=== PATIENT | male | born 1960 | race Caucasian/White ===

== ENCOUNTER 2020-10-28 14:27 | Emergency (ER) | payer OTHER ==
[~2020-10-28] VITALS: Ht 177.8 cm; Wt 84.1 kg
[~2020-10-28 14:27] MED LIST: APAP/HYDROCO1 TA1 PO; ASPIRIN ADULT L81 MG PO; CEPHALEXIN500 M1 PO; ERYTHROMYCIN BAS1 GM OD; FINASTERIDE5 MG PO; GABAPENTIN300 MG PO; ISOSORBIDE DINIT5 MG OR; LISINOPRIL10 MG PO; LORATADINE10 M1 PO; METOPROL TAR25 MG; METOPROL TAR25 MG PO; MULTI VIT PO; NORCO1 TAB OR; NORCO1 TAB PO; PRILOSEC20 MG/CAP PO; PRILOSEC40 MG PO; ROBITUSSIN AC10 ML OR; SIMVASTATIN10 MG PO; SIMVASTATIN40 MG PO; TAMSULOSIN HCL0.4 MG PO; TESTOST ENA200 MG/ML IM; TRAMADOL HCL50 MG; ULTRAM50 M1 PO; VITAMIN B-12500 MCG PO; VITAMIN B12
[2020-10-28 17:37] VITALS: BP 154/92
== END 2020-10-28 17:37 | disposition home or self-care (01) | DRG 605 ==
LOC: ED 14:27
PROC: 0HQ0XZZ Repair Scalp Skin, External Approach (ICD-10-PCS; principal; 2020-10-28)
DX: S01.01XA Laceration without foreign body of scalp, initial encounter (principal); W22.8XXA Striking against or struck by other objects, initial encounter; Y93.89 Activity, other specified; Y92.009 Unspecified place in unspecified non-institutional (private) residence as the place of occurrence of the external cause